=== PATIENT | male | born 1970 | race Two or more races ===

== ENCOUNTER → 2022-05-12 | Day surgery (SDC) | payer MEDICARE, MEDICAID ==
[~2022-05-12] VITALS: Ht 167.6 cm; Wt 108.9 kg
[~2022-05-12] MED LIST: ASPI-1497 PO; CARV12.545 PO; DEXT 5%/0.45% NACL 1000ML 1,000 ML IV SCH; EPHEDRINE SULFATE 50MG/ML VIAL ONE; FERR325T23 PO; INSNOV SUBCUT; INSU100I28 SQ; LIDOCAINE HCL 1% 20ML VIAL (Pyxis) INJ ONE; LOSA25TA26 PO; METF-416 PO; MIDAZOLAM HCL 5 MG/5 ML VIAL ONE; PHENYLEPHRINE HCL 10 MG/ML 1ML (IV VIAL) IV ONE; PROPOFOL 200MG/20ML VIAL IV ONE; ROSU20TA2 PO; SITA100T11 PO; SODIUM CHLORIDE 0.9% 1,000 ML IV SCH
== END | disposition home or self-care (01) ==
LOC: OR 09:22
PROVIDERS: ATTEND Internal Medicine Gastroenterology
DX: I85.01 Esophageal varices with bleeding (principal); K70.9 Alcoholic liver disease, unspecified; K31.89 Other diseases of stomach and duodenum; I10 Essential (primary) hypertension; E78.00 Pure hypercholesterolemia, unspecified; E11.9 Type 2 diabetes mellitus without complications; K21.9 Gastro-esophageal reflux disease without esophagitis; G47.30 Sleep apnea, unspecified; Z79.82 Long term (current) use of aspirin; Z79.84 Long term (current) use of oral hypoglycemic drugs; Z79.899 Other long term (current) drug therapy; Z98.890 Other specified postprocedural states; Z20.822 Contact with and (suspected) exposure to COVID-19
CPT/HCPCS: 43244; 82962; 87426; C9803; J2250; J2370; J2704; J3490

== ENCOUNTER → 2022-10-06 | Outpatient (CLI) | payer MEDICARE, MEDICAID ==
[~2022-10-06] MED LIST changes: -DEXT 5%/0.45% NACL 1000ML 1,000 ML IV SCH; -EPHEDRINE SULFATE 50MG/ML VIAL ONE; -LIDOCAINE HCL 1% 20ML VIAL (Pyxis) INJ ONE; -MIDAZOLAM HCL 5 MG/5 ML VIAL ONE; -PHENYLEPHRINE HCL 10 MG/ML 1ML (IV VIAL) IV ONE; -PROPOFOL 200MG/20ML VIAL IV ONE; -SODIUM CHLORIDE 0.9% 1,000 ML IV SCH
== END | disposition home or self-care (01) ==
LOC: US 08:12
PROVIDERS: ATTEND Internal Medicine Gastroenterology
DX: K76.0 Fatty (change of) liver, not elsewhere classified (principal); K80.20 Calculus of gallbladder without cholecystitis without obstruction; R16.1 Splenomegaly, not elsewhere classified; K74.60 Unspecified cirrhosis of liver; R18.8 Other ascites
CPT/HCPCS: 76700

== ENCOUNTER → 2025-06-18 | Outpatient (CLI) | payer MEDICARE, MEDICAID | END | disposition home or self-care (01) | LOC: US 07:37 | PROVIDERS: ATTEND Internal Medicine Gastroenterology | DX: K80.20 Calculus of gallbladder without cholecystitis without obstruction (principal); R16.2 Hepatomegaly with splenomegaly, not elsewhere classified; K76.89 Other specified diseases of liver | CPT/HCPCS: 76700 ==